=== PATIENT | male | born 1935 | race Caucasian/White ===

== ENCOUNTER 2017-02-28 04:14 | Emergency (ER) | payer MEDICARE, OTHER ==
[~2017-02-28] VITALS: Ht 175.3 cm; Wt 100.0 kg
[2017-02-28 04:16] VITALS: BP 146/88; PULSE 113; RESP 18; O2SAT 96
--- NOTE | 2017-02-28 04:28 | ED.REPORT ---
HPI- Male Date of Service Feb 28, 2017 ED Provider: Kd Rodriguez MD Patient is an 81 year old male on Warfarin with a history of hypertension and recent back surgery that presents to the ED due to an inability to urinate intermittently for the past 3.5 weeks. This began following his surgery. The patient has been having increased difficulty urinating today despite urgency and states that he last urinated 14 hours ago. Associated symptoms include abdominal pain and chills. He denies nausea and vomiting. Nursing Notes Stated Complaint: UNABLE TO URINATE Chief Complaint: Male Abdominal Pain Nursing Notes Reviewed: Yes Allergies: Coded Allergies: No Known Allergies (Unverified , 02/28/17) Scheduled Cefuroxime Axetil (Cefuroxime) 500 Mg Tablet 500 MG PO BID General Time Seen by MD: 04:25 Chief Complaint Unable to urinate Hx Obtained From: Patient Arrived By: Walk-in Onset Occurred: More than a week ago... (3 weeks) Recent Healthcare: Recent doctor visit, Recent hospitalization Similar Sx Previous: No Past Medical History Past Medical History Leg DVT. No PE. On Warfarin. Reports: Hypertension Past Surgical History back surgery Smoking History Never Smoker Social History Alcohol Use: Denies alcohol use Drug Use: Denies drug use Other Social History: Good social support, , Local resident Ambulatory Status Independent Review of Systems Review of Systems Note: inability to urinate Constitutional: Reports: Chills GI: Reports: Abdominal pain, Denies: Nausea, Vomiting Male: Reports Urinary urgency Musculoskeletal: Denies: Back pain Complete sys rev & neg: except as marked. Physical Exam Initial Vital Signs Vital Signs (First) Date Time Temp Pulse Resp B/P Pulse Ox O2 Delivery O2 Flow Rate FiO2 02/28/17 04:16 37.6 113 18 146/88 96 Room Air Initial VS: Reviewed exam deferred General/Constitutional: Awake, Alert, No acute distress no protrusion of abdomen Abdomen: Atraumatic, Soft, Non-tender Skin: Atraumatic, Color NL, No rash Head / Eyes: Atraumatic, Normocephalic, PERRL, EOMI ENT: Atraumatic, Airway patent, Mucous membranes moist Neck: Atraumatic, Supple, Full range of motion Respiratory / Chest: Atraumatic, Breath sounds NL, Breath sounds = bilat, No respiratory distress Cardiovascular: Heart rate NL, Regular rhythm, Heart sounds NL Back: Atraumatic, Full range of motion Upper Extremity / MS: Atraumatic, Full range of motion Lower Extremity / Pelvis / MS: Atraumatic, Full range of motion Neurologic: Oriented X3, Speech NL, No motor deficits, No sensory deficits Psychiatric: Affect NL, Mood NL Interpretation & Diagnostics Lab Results Interpretation Test 02/28/17 04:50 Urine Color Yellow (YELLOW) Urine Appearance Clear (CLEAR,HAZY) Urine pH 7.0 (5.0-8.0) Urine Specific [place] 1.010 (1.003-1.035) Urine Protein 100mg/dL (NEG,TRACE) Urine Glucose (UA) Negativemg/dL (NEGATIVE) Urine Ketones Negativemg/dL (NEGATIVE) Urine Occult Blood Large (NEGATIVE) Urine Nitrite Negative (NEGATIVE) Urine Bilirubin Negative (NEGATIVE) Urine Urobilinogen Normalmg/dL (NORMAL) Urine Leukocyte Esterase Trace (NEGATIVE) Urine RBC 11-50/hpf (0-2) Urine WBC 6-10/hpf (0-5) Urine Epithelial Cells Few/hpf (NONE-MOD) Urine Crystals None seen (NONE SEEN) Urine Bacteria Moderate/hpf (NONE-FEW) Urine Hyaline Casts None/lpf (NONE) Urine Granular Casts None seen (NONE SEEN) Urine Waxy Casts None seen (NONE SEEN) Urine Red Blood Cell Casts None seen (NONE SEEN) Urine White Blood Cell Casts None seen (NONE SEEN) Urine Mucus Present (None Seen) Urine Trichomonas None seen (NONE SEEN) Urine Yeast None (NONE SEEN) Urinalysis Comment None Urine Culture Reflexed Indicated Re-Eval/Medical Decision Med Decision/Clinical Course R. He was dribbling all day and unable to urinate, and is relieved by Saleem. Urinalysis shows white cells consistent with UTI. We will treat empirically with Ceftin pending culture. He needs to have his Slaeem out after 24-48 hours. Was offered to remove it now but he was afraid of failing and filling up again. We will leave it temporarily and continue his antibiotics past the time of removal on Wednesday. Discharged on stable condition. Source of Hx: Old records Re-Evaluation/Progress : Time of Eval: 06:04 Patient Status: Condition improved Re-Evaluation/Progress Note: Patient rechecked, who is feeling significantly better. The diagnosis and plan for discharge are discussed. The patient understands and agrees with the plan. All questions are addressed at this time. Counseled Regarding: Diagnosis, Need for follow-up, When/why to return to ED Discharge & Departure Impression: Primary Impression: Urinary tract infection Urinary tract infection type: acute cystitis Hematuria presence: without hematuria Qualified Code: N30.00 - Acute cystitis without hematuria Additional Impression: Prostatic hypertrophy, benign, with obstruction Disposition: Home Discharge Condition All VS Reviewed: Yes Condition: Stable Patient Instructions: Benign Prostatic Hypertrophy (ED), Urinary Tract Infection in Men (ED) Additional Instructions: Leave the Saleem in place for now. Begin Ceftin twice daily. The Saleem should come out Wednesday morning, and continue the Ceftin for ten days total. Follow-up with your doctor on Wednesday. Return if any immediate problems over the . Referrals: Osman Barton MD (PCP) Scribe Attestation Portions of this note were transcribed by Debi Lyons and Yamileth Díaz. I, Dr. Rodriguez personally performed the history, physical exam and medical decision -making; I reviewed and confirmed the accuracy of the information in the transcribed note. Signed by: Debi Lyons and Laura Ford, 02/28/17 and 0602. copies to: Osman Barton MD, Christopher W MD Feb 28, 2017 04:28 Fide Lyons Feb 28, 2017 04:36 YAMILETH DÍAZ Feb 28, 2017 05:27
[2017-02-28] MEDS ORDERED: Phenazopyridine 97.5 mg Tablet PO ONE (04:45)
[2017-02-28 04:59] LABS: APPEARANCE,URINE CLEAR (CLEAR,HAZY); COLOR,URINE YELLOW (YELLOW)
[2017-02-28 05:00] LABS: OCCULT BLOOD,URINE LARGE (NEGATIVE); UROBILINOGEN,URINE NORMAL (NORMAL)
[2017-02-28] MEDS ORDERED: CEFU500T61 PO (05:48)
[2017-02-28 06:06] VITALS: BP 132/89; PULSE 78; RESP 18; O2SAT 99
== END 2017-02-28 06:07 | disposition home or self-care (01) ==
LOC: SED 04:14
DX: N30.00 Acute cystitis without hematuria (principal); N40.0 Benign prostatic hyperplasia without lower urinary tract symptoms; I10 Essential (primary) hypertension